=== PATIENT | female | born 1940 | race Asian ===

== ENCOUNTER 2018-12-22 18:01 | Inpatient (IN) | payer OTHER, MEDICAID ==
[~2018-12-22] VITALS: Ht 160 cm; Wt 83.9 kg
--- NOTE | 2018-12-22 18:10 | NUR ---
ED Nurse Note: BROUGHT BY RA 29 DUE TO BULGE ON LEFT MID FEMOR S/P TRIPPED AND FALL, NO HEAD/NECK INJURY. PAIN 1/10 AFTER 100MCG OF FENTANYL
[2018-12-22 18:26] VITALS: BP 157/61
[2018-12-22] MEDS ORDERED: Morphine Sulfate 4mg/ml Inj (IV USE ONLY) IVP ONE (18:30)
--- NOTE | 2018-12-22 18:43 | Emergency Room Report ---
History of Present Illness General Chief Complaint: Multiple Trauma/Fall Source: Patient, EMS Present Illness HPI She was standing and twisted. She heard a pop in her leg and there was pain and she fell. Paramedics were summoned. She has deformity in the mid thigh on the left-hand side. They gave her 100 of fentanyl. Her medics claim the fentanyl is wearing off. Pain is rated 10/10. It is sharp and aching. It does not radiate. She denies numbness. Is worse with palpation and movement. The patient was diverted to our facility by [facility]. The patient denies oncologic problems. No fevers, chills, sore throat, chest pain, palpitations, nausea, vomiting, diarrhea, dysuria, abdominal pain, shortness of breath, rashes, depression, anxiety, visual changes, headache. Allergies: Coded Allergies: No Known Allergies (Unverified , 12/22/18) Patient History Past Medical History: see triage record Past Surgical History: hysterectomy, other - Disc surgery Social History: Denies: smoking, alcohol use, drug use Social History Narrative From home Reviewed Nursing Documentation: PMH: Agreed; PSxH: Agreed Nursing Documentation-PMH Past Medical History: No History, Except For Hx Hypertension: Yes Hx Diabetes: Yes Review of Systems All Other Systems: negative except mentioned in HPI Physical Exam Vital Signs Date Time Temp Pulse Resp B/P (MAP) Pulse Ox O2 Delivery O2 Flow Rate FiO2 12/22/18 17:58 98.2 80 16 157/61 (93) 96 Room Air Sp02 EP Interpretation: reviewed, normal General Appearance: well appearing, GCS 15, mild distress Head: normocephalic Eyes: bilateral eye normal inspection, bilateral eye PERRL, bilateral eye EOMI ENT: moist mucus membranes Neck: supple Respiratory: chest non-tender, lungs clear, normal breath sounds Cardiovascular #1: regular rate, rhythm Cardiovascular #2: 2+ radial (R), 2+ dorsalis pedis (L) - Good capillary refill Gastrointestinal: normal inspection, normal bowel sounds, non tender, non- distended Genitourinary: no CVA tenderness Musculoskeletal: back normal, pelvis stable, other - Deformity and tenderness mid thigh left side no hip tenderness or knee tenderness Neurologic: alert, oriented x3, distal neuro normal, grossly normal Psychiatric: other - In pain Skin: no rash Medical Decision Making Diagnostic Impression: Primary Impression: Femur fracture, left Qualified Codes: S72.322A - Displaced transverse fracture of shaft of left femur, initial encounter for closed fracture ER Course Patient presents with thigh pain after twisting and falling. There is obvious deformity. Differential includes femur fracture, pathologic fracture amongst others. Evaluation will be with preoperative labs including EKG, chest x-ray type and screen. A hair traction splint will be applied. Aggressive analgesia will be administered. EKG without injury. Chest x-ray no infiltrates. Left femur with displaced midshaft fracture. Labs with mild anemia. Analgesia repeated. Slight decrease in oxygen saturation and oxygen begun. Hare traction splint applied with my assistance. Improved anatomic alignment. Distal neurovascular exam normal after splint basement as checked by me. Pain improved. Admit medical floor Dr. Vang. Consultation with Dr. Copeland requested. Laboratory Tests Test 12/22/18 18:35 12/22/18 19:40 White Blood Count 7.4 K/UL (4.8-10.8) Red Blood Count 3.28 M/UL (4.20-5.40) L Hemoglobin 10.4 G/DL (12.0-16.0) L Hematocrit 30.6 % (37.0-47.0) L Mean Corpuscular Volume 93 FL (80-99) Mean Corpuscular Hemoglobin 31.6 PG (27.0-31.0) H Mean Corpuscular Hemoglobin Concent 33.9 G/DL (32.0-36.0) Red Cell Distribution Width 11.6 % (11.6-14.8) Platelet Count 178 K/UL (150-450) Mean Platelet Volume 6.7 FL (6.5-10.1) Neutrophils (%) (Auto) 63.1 % (45.0-75.0) Lymphocytes (%) (Auto) 24.3 % (20.0-45.0) Monocytes (%) (Auto) 10.0 % (1.0-10.0) Eosinophils (%) (Auto) 1.6 % (0.0-3.0) Basophils (%) (Auto) 1.1 % (0.0-2.0) Prothrombin Time 10.2 SEC (9.30-11.50) Prothrombin Time INR 1.0 (0.9-1.1) PTT 32 SEC (23-33) Sodium Level 145 MMOL/L (136-145) Potassium Level 3.2 MMOL/L (3.5-5.1) L Chloride Level 111 MMOL/L (98-107) H Carbon Dioxide Level 23 MMOL/L (21-32) Anion Gap 11 mmol/L (5-15) Blood Urea Nitrogen 15 mg/dL (7-18) Creatinine 0.8 MG/DL (0.55-1.30) Estimate Glomerular Filtration Rate mL/min (>60) Glucose Level 115 MG/DL (74-106) H Calcium Level 7.9 MG/DL (8.5-10.1) L Total Bilirubin 0.2 MG/DL (0.2-1.0) Aspartate Amino Transferase (AST) 17 U/L (15-37) Alanine Aminotransferase (ALT) 21 U/L (12-78) Alkaline Phosphatase 47 U/L (46-116) Total Protein 6.2 G/DL (6.4-8.2) L Albumin 3.1 G/DL (3.4-5.0) L Globulin 3.1 g/dL Albumin/Globulin Ratio 1.0 (1.0-2.7) Urine Color Pale yellow Urine Appearance Clear Urine pH 6.5 (4.5-8.0) Urine Specific Ma[place] 1.015 (1.005-1.035) Urine Protein Negative (NEGATIVE) Urine Glucose (UA) Negative (NEGATIVE) Urine Ketones Negative (NEGATIVE) Urine Blood Negative (NEGATIVE) Urine Nitrite Negative (NEGATIVE) Urine Bilirubin Negative (NEGATIVE) Urine Urobilinogen Normal MG/DL (0.0-1.0) Urine Leukocyte Esterase 2+ (NEGATIVE) H Urine RBC 2-4 /HPF (0 - 2) H Urine WBC 5-10 /HPF (0 - 2) H Urine Squamous Epithelial Cells Few /LPF (NONE/OCC) Urine Bacteria Few /HPF (NONE) EKG Diagnostic Results Rate: normal Rhythm: NSR ST Segments: no acute changes Rhythm Strip Diag. Results EP Interpretation: yes Rhythm: NSR, no PVC's, no ectopy Chest X-Ray Diagnostic Results Chest X-Ray Diagnostic Results : Chest X-Ray Ordered: Yes # of Views/Limited/Complete: 1 View Indication: Other EP Interpretation: Yes Interpretation: no consolidation, no effusion, no pneumothorax Impression: No acute disease Other X-Ray Diagnostic Results Other X-Ray Diagnostic Results #1: X-Ray ordered: L femur Indication: Pain EP Interpretation: Yes Interpretation: no soft tissue swelling, other - fx angulation and displacement Impression: Other Electronically Signed by: Electronically signed by Silver Robertson MD Other X-Ray Diagnostic Results #2: X-Ray ordered: L femur # of Views/Limited Vs Complete: 2 View Indication: Other EP Interpretation: Yes Interpretation: no dislocation, no soft tissue swelling, other - fx femur, better Impression: Other Electronically Signed by: Electronically signed by Silver Robertson MD Other X-Ray Diagnostic Results #3: X-Ray ordered: Pelvis # of Views/Limited Vs Complete: 1 View Indication: Pain Interpretation: no dislocation, no soft tissue swelling, no fractures Impression: No acute disease Electronically Signed by: Electronically signed by Silver Robertson MD Last Vital Signs Date Time Temp Pulse Resp B/P (MAP) Pulse Ox O2 Delivery O2 Flow Rate FiO2 12/23/18 04:45 96 20 134/87 (103) 96 12/23/18 04:00 98.4 12/23/18 01:41 Nasal Cannula 2.0 Status: improved Disposition: ADMITTED INPATIENT Condition: Serious Silver Robertson MD Dec 22, 2018 18:43
[2018-12-22] MEDS ORDERED: HYDROmorphone 1mg/ml Carpuject IVP ONE (18:45)
[2018-12-22 19:15] LABS: BASOPHILS % (AUTO) 1.1 % (0.0-2.0); EOSINOPHILS % (AUTO) 1.6 % (0.0-3.0); HEMATOCRIT 30.6 % (37.0-47.0); HEMOGLOBIN 10.4 G/DL (12.0-16.0); LYMPHOCYTES % (AUTO) 24.3 % (20.0-45.0); MEAN CORPUSCULAR VOLUME 93 FL (80-99); NEUTROPHILS % (AUTO) 63.1 % (45.0-75.0); PLATELET COUNT 178 K/UL (150-450); RED BLOOD COUNT 3.28 M/UL (4.20-5.40); RED CELL DISTRIBUTION WIDTH 11.6 % (11.6-14.8); WHITE BLOOD COUNT 7.4 K/UL (4.8-10.8)
[2018-12-22 19:19] LABS: ANION GAP 11 mmol/L (5-15); BLOOD UREA NITROGEN 15 mg/dL (7-18); CALCIUM 7.9 MG/DL (8.5-10.1); CARBON DIOXIDE 23 MMOL/L (21-32); CHLORIDE 111 MMOL/L (98-107); CREATININE 0.8 MG/DL (0.55-1.30); POTASSIUM 3.2 MMOL/L (3.5-5.1); SODIUM 145 MMOL/L (136-145)
[2018-12-22 19:30] LABS: ALANINE AMINOTRANSFERASE 21 U/L (12-78); ALBUMIN 3.1 G/DL (3.4-5.0); ALKALINE PHOSPHATASE 47 U/L (46-116); ASPARTATE AMINO TRANSFERASE 17 U/L (15-37); BILIRUBIN,TOTAL 0.2 MG/DL (0.2-1.0)
--- NOTE | 2018-12-22 19:39 | NUR ---
ED Nurse Note: LEFT LEG TRACTION APPLIED PER EMT
--- NOTE | 2018-12-22 19:45 | NUR ---
ED Nurse Note: LATHE SET UP PERSON AT BEDSIDE FOR FEMUR XRAY
[2018-12-22 19:48] VITALS: BP 169/78
[2018-12-22 19:59] LABS: APPEARANCE,URINE CLEAR; BILIRUBIN, URINE NEGATIVE (NEGATIVE); COLOR,URINE PALE YELLOW; GLUCOSE, URINE (UA) NEGATIVE (NEGATIVE); KETONES,URINE NEGATIVE (NEGATIVE); LEUKOCYTE ESTERASE ,URINE 2+ (NEGATIVE); NITRITE,URINE NEGATIVE (NEGATIVE); PH,URINE 6.5 (4.5-8.0); PROTEIN,URINE NEGATIVE (NEGATIVE); UROBILINOGEN,URINE NORMAL MG/DL (0.0-1.0)
[2018-12-22] MEDS ORDERED: Hydromorphone 0.5mg/0.5ml inj IVP ONE ×2 (20:00→21:30)
--- NOTE | 2018-12-22 21:21 | NUR ---
ED Nurse Note: family at bedside
[2018-12-22] MEDS ORDERED: Hydromorphone 0.5mg/0.5ml inj ONE (21:26)
--- NOTE | 2018-12-22 21:40 | NUR ---
Receive a report from ELLY Kent from ED.
--- NOTE | 2018-12-22 21:42 | NUR ---
ED Nurse Note: telephone report given to tracy vallecillo
[2018-12-22] MEDS ORDERED: UNOBMED (21:44)
[2018-12-22] MEDS ORDERED: Enoxaparin 40mg Inj SUBQ SCH (22:00)
--- NOTE | 2018-12-22 22:00 | NUR ---
ED Nurse Note: pt sent up with ximena emt pt is aox4 pt belongings given to family memeber glenys lai. pt vss. no acute distress.
--- NOTE | 2018-12-22 22:10 | NUR ---
NURSE NOTES: Pt is newly admitted from ED via gurney. Pt is awake and alert, orientation x 4, Luxembourgish speaking. Breathing is even and non labored. On traction at left leg. DPP intact in both feet and sensory and motor skill are intact. Keep traction in place. Armstrong catheter is inserted state and patent with yellowish urine. IV heparin lock on left hand without infiltration. Done check of belongings. Cell phone is placed with pt near hand with a movement therapist. Notify Dr. Vang for pt's admission and verify orders. Will continue to monitor.
[2018-12-22 22:30] VITALS: BP 178/92
[2018-12-22] MEDS: HydrALAZINE 25mg tab ORAL PRN (22:49)
--- NOTE | 2018-12-22 23:00 | NUR ---
NURSE NOTES: Contact with Dr. Copeland for pt's surgery schedule and planning on Saturday. Pt made aware of it. BP: 171/86mmHg. No headache noted. Provide PRN BP medication. Will continue to monitor.
[2018-12-22] MEDS: Morphine Sulfate 2mg/ml Inj(IV/IM USE ONLY) IVP PRN (23:39)
[2018-12-23] VITALS (15 sets, daily range): BP systolic 116–176; BP diastolic 45–103
[2018-12-23] MEDS: Morphine Sulfate 2mg/ml Inj(IV/IM USE ONLY) IVP PRN ×6 (02:44→18:44)
--- NOTE | 2018-12-23 03:30 | NUR ---
NURSE NOTES: After prn pain medication, pt is asleep. On left leg traction. Will continue to monitor.
--- NOTE | 2018-12-23 03:35 | NUR ---
Pt is alert but crying for pain. Given prn pain medication. Checking alignment on left leg traction. Checking sensory and motor on left foot and intact. Release traction two belcrows and reapply.
--- NOTE | 2018-12-23 03:45 | NUR ---
NURSE NOTES: Contact Dr. Vang for pt's pain and receive orders of Dilaudid 1mg IVS x1 and [place] 5/325mg 1t po q 6hrs for breakthrough pain. Order noted and carried out. Send a message to [facility] pharmacy to verify. CN update to Mr Teacher pt's conditions. Will continue to monitor.
[2018-12-23] MEDS ORDERED: HYDROmorphone 1mg/ml Carpuject IVP ONE (04:00)
[2018-12-23] MEDS ORDERED: HYDROcodone/Acetamin 5/325 tab ORAL PRN ×2 (04:00→10:00)
--- NOTE | 2018-12-23 04:10 | NUR ---
NURSE NOTES: Done Dilaudid 1mg IVP. Pt is screaming for not getting treatment right away despite explanation of process of care plan. Spoke to [facility] and called Dr. Vang for pt's conditions. MD will come and see pt a few hours later. And left a message to Dr. Copeland for pt's pain and further treatment. Will continue to monitor.
--- NOTE | 2018-12-23 04:40 | NUR ---
NURSE NOTES: Pain level went down to 4/10. Pt states that she feels better. No nausea/vomiting noted. Explain for process of plan and pain management, usual Drs' visiting time to see pt. Receive orders for pain control. Order noted and carried out. Will continue to monitor.
[2018-12-23] MEDS ORDERED: Morphine Sulfate 2mg/ml Inj(IV/IM USE ONLY) IVP PRN ×2 (05:00→20:15)
--- NOTE | 2018-12-23 05:30 | NUR ---
NURSE NOTES: Pt's friend came to see pt and talk to her. Pain is manageable. Pt is awake and alert. Breathing is even and non labored. Will continue to monitor.
--- NOTE | 2018-12-23 05:50 | NUR ---
NURSE NOTES: Receive a call back from Dr. Copeland. Notify pt's condition and pain with traction. Receive order to switch from traction to splint. And pt can get an emergency surgery after 8pm so keep npo after breakfast. Order noted and carried out. Update CN and pt. Will continue to monitor.
--- NOTE | 2018-12-23 06:10 | NUR ---
NURSE NOTES: RN and rv technician came up from ED and switch from Traction to splint. Both DPP, sensory, and motor are intact. Inform pt that if she feels pain/ swelling on left foot, then let staffs know immediately. Pt verbalizes understanding. Splint in placed on left leg. PRN breakthrough medication given. Will continue to monitor.
[2018-12-23] MEDS: NovoLOG Insulin Flexpen SUBQ SCH ×4 (06:48→21:00)
--- NOTE | 2018-12-23 07:45 | NUR ---
HAND-OFF: Report given to ELLY Dubon. Seen by Dr. Vang earlier. Will continue to monitor.
--- NOTE | 2018-12-23 07:50 | NUR ---
NURSE NOTES: Patient lying in bed awake. Complain of pain 6/10 on left leg and pain medication given by retail shift supervisor nurse. Will continue to monitor. Splint on left leg. IV dressing intact and dry. Bed lowest position. Call light within reach. Will continue to monitor.
[2018-12-23] MEDS: Enoxaparin 40mg Inj SUBQ SCH (08:37)
--- NOTE | 2018-12-23 11:06 | NUR ---
*-* INSURANCE *-* ALL CLINICALS HAVE BEEN FAXED TO; [facility] I CALLED AND LM ON THE VMAIL FOR DELFINO DOMINGUEZ: DELFINO P- [phone]...........REVIEW /CLINICAL
--- NOTE | 2018-12-23 11:17 | Cardiology Report ---
APPROVED REPORT EKG Measurement Heart [id number] Normal sinus rhythm Normal ECG
--- NOTE | 2018-12-23 13:06 | Diagnostic Imaging Report ---
Indications: Trauma, pain Technique: Two views of the left femur Comparison: None Findings: There is a fracture of the proximal femoral diaphysis. This is angulated, displaced by over one bone width, overrides by 3 to 4 cm. Impression: Positive for proximal femoral fracture
--- NOTE | 2018-12-23 13:16 | Diagnostic Imaging Report ---
Indication: Chest pain, status post fall Technique: One view of the chest Comparison: none Findings: Body habitus limits evaluation. No definite acute infiltrates or effusions. The heart is borderline enlarged. There is mild bilateral interstitial prominence. The bones appear unremarkable Impression: No evidence of acute posttraumatic abnormality Borderline interstitial prominence, could indicate mild interstitial edema. Correlate with clinical findings
--- NOTE | 2018-12-23 13:34 | Diagnostic Imaging Report ---
Indications: Postreduction Technique: Two views of the left femur Comparison: None Findings: External splint or fixator is noted. There is been interim improvement of the anatomic alignment of the previously demonstrated proximal femoral shaft fracture. There is decreased angulation and override. However, there is still approximately 2 to 3 cm of override and the fracture remains displaced by one bone width. Impression: Somewhat improved alignment of previously demonstrated proximal femoral fracture, status post apparent closed reduction, as described
--- NOTE | 2018-12-23 13:41 | Diagnostic Imaging Report ---
Indication: Trauma, pain, status post fall Technique: One view of the pelvis Comparison: Findings: There is an external splint in place. There is a fracture of the proximal femoral shaft, which is displaced by about one bone with, overrides by a few centimeters. No pelvic fracture demonstrated. Hardware is seen in the posterior lower lumbar spine. There is a Armstrong catheter in place. The joint spaces are preserved Impression: Positive for femoral shaft fracture, also described on separate femoral radiograph report. No definite acute pelvic fracture Other findings as noted
--- NOTE | 2018-12-23 16:24 | NUR ---
CASE MANAGEMENT:REVIEW 78 YR OLD FEMALE BIBA FROM HOME CC; S/P TRIP AND FALL. LT LEG PAIN SI: FRACTURED FEMUR 98.3 80 16 157/61 96% ON RA H/H-10.4/30.6 K-3.2 GLUCOSE+115 IS: LT LEG TRACTION APPLIED BY EMS IV MORPHINE IV DILAUDID X2 1L NS BOLUS IV ZOFRAN XRAY LT FEMUR/PELVIS/CHEST : TO MED/SURG 3 EAST PLAN: CONSENT FOR LT FEMUR ORIF
--- NOTE | 2018-12-23 16:56 | History and Physical Report ---
DATE OF ADMISSION: 12/22/2018 REASON FOR ADMISSION: Left femur fracture. HISTORY OF PRESENT ILLNESS: The patient is a 78-year-old female, who was admitted overnight for further evaluation and care of pain of her left leg. The patient was standing and seemingly twisted herself, heard a pop in her leg, and fell. Instantly felt pain 10/10, was given fentanyl by EMS. The patient was diverted to facility from [facility]. Orthopedics noted left femur fracture, awaiting surgery. ALLERGIES: No known drug allergies SOCIAL HISTORY: No tobacco, alcohol, or illicit drug use. PAST SURGICAL HISTORY: Hysterectomy and disk surgery. PAST MEDICAL HISTORY: Hypertension, hyperlipidemia, diabetes. LABORATORY DATA: Labs dated 12/22/2018 sodium 142, potassium 3.2, calcium 7.9. Hemoglobin 10.4, white cell count 7.4, platelet count 178. PHYSICAL EXAMINATION: VITAL SIGNS: Blood pressure 134/87, respiratory rate 20, pulse 96, temperature 98.4. GENERAL: The patient awake, in moderate distress with movement. HEENT: Extraocular muscles intact. No lymphadenopathy. Oropharyngeal is clear and dry. CARDIOVASCULAR: S1, S2. No rubs or gallops. PULMONARY: Clear to auscultation bilaterally. No rales, rhonchi, or wheezes. ABDOMINAL: Nondistended and nontender. EXTREMITIES: No edema noted. ASSESSMENT AND PLAN: 1. Left leg pain, status post left femur fracture. Defer all management of fracture to Orthopedics. Orthopedic Surgery is planning ORIF on Saturday. 2. Left leg pain secondary to left femur fracture. The patient has had her pain medications increased accordingly with [place] and morphine. When I approached and went into the room, the patient was lying quiet in no overt distress. She was not in any pain. However, once I started to talk to her, she tried to move her leg and was found in pain. 3. Hypertension. We will adjust medications as deemed appropriate. No home medications are known. 4. Diabetes mellitus. Insulin with sliding scale. Once again, I discussed with nurse extensively to try to get home medications. 5. DVT prophylaxis with Lovenox. Juan Vang MD DR: LUZ MARINA JOB#: [id number] CC:
[2018-12-23] MEDS ORDERED: Zemuron 50mg/5ml Inj IV ONE (19:26)
[2018-12-23] MEDS ORDERED: Bacitracin 50000 Units Vial ONE (19:26)
[2018-12-23] MEDS ORDERED: Propofol 200mg/20ml IV ONE (19:28)
[2018-12-23] MEDS ORDERED: fentaNYL 100 mcg/2 mL IV ONE (19:28)
[2018-12-23] MEDS ORDERED: Lidocaine 1% MPF 10mg/ml 5ml ONE (19:28)
--- NOTE | 2018-12-23 19:30 | NUR ---
NURSE NOTES: Received report from ELLY Dubon and rounds made with outgoing nurse. Received pt in bed, AOx4, Welsh speaking with limited hong konger, able to make needs known without difficulty. No distress noted. Bed in lowest position and locked, side rails up x 2, call light within reach. Will continue to monitor.
--- NOTE | 2018-12-23 19:30 | NUR ---
HAND-OFF: Report given to Lui RN and Maria Ines RN. Patient in stable condition.
--- NOTE | 2018-12-23 19:47 | NUR ---
NURSE NOTES: Patient off unit for surgery in stable condition. IV patent.
--- NOTE | 2018-12-23 19:48 | NUR ---
NURSE NOTES: Pt taken down to O.R. for surgery. Pt in stable condition. No distress noted.
--- NOTE | 2018-12-23 19:51 | Anethesia Preoperative Eval ---
Anesthesia Pre-op PMH/ROS General Date of Evaluation: Dec 23, 2018 Time of Evaluation: 19:20 Anesthesiologist: Arline ASA Score: ASA 3 Mallampati Score Class I : Soft palate, uvula, fauces, pillars visible Class II: Soft palate, uvula, fauces visible Class III: Soft palate, base of uvula visible Class IV: Only hard plate visible Mallampati Classification: Class II Surgeon: Min Diagnosis: L femoral Fx Surgical Procedure: ORIF of L femoral Fx Anesthesia History: none Family History: no anesthesia problems Allergies: Coded Allergies: No Known Allergies (Unverified , 12/22/18) Medications: see eMAR Patient NPO?: Yes NPO Date: Dec 23, 2018 NPO Time: 1000 Past Medical History Cardiovascular: Reports: HTN - stable on meds; Denies: CAD, AR, valve dz, arrhythmia, other Pulmonary: Denies: asthma, COPD, CELIO, other Gastrointestinal/Genitourinary: Reports: GERD; Denies: CRI, ESRD, other Neurologic/Psychiatric: Reports: depression/anxiety; Denies: dementia, CVA, TIA, other Endocrine: Reports: DM; Denies: hypothyroidism, steroids, other HEENT: Denies: cataract (L), cataract (R), glaucoma, [place] (L), [place] (R), other Hematology/Immune: Reports: anemia - mild; Denies: DVT, bleeding disorder, other Musculoskeletal/Integumentary: Reports: OA; Denies: RA, DJD, DDD, edema, other Other: obesity PMH Narrative: as above admitted for acute mechanical fall resulted in L femoral shaft Fx PSxH Narrative: Lumbar spine Sx, hysterectomy Anesthesia Pre-op Phys. Exam Physician Exam Last Vital Signs Date Time Temp Pulse Resp B/P (MAP) Pulse Ox O2 Delivery O2 Flow Rate FiO2 12/23/18 16:00 98.0 94 17 167/103 (124) 95 12/23/18 09:00 Nasal Cannula 2.0 12/23/18 08:10 28 Constitutional: NAD Neurologic: other - unable to obtaine Cardiovascular: RRR, no M/R/G Respiratory: CTA Gastrointestinal: other - obesity Airway Exam Mallampati Score: Class III MO: limited Neck: short ROM: limited Teeth: missing Dentures: no upper, no lower Anesthesia Pre-op A/P Labs see chart Studies Pre-op Studies: EKG - SR Risk Assessment & Plan Assessment: ASA 3 Plan: GA with ETT Status Change Before Surgery: No Pre-Antibiotics Drug: Ancef 1gr Given Within 1 Hr of Incision: Yes Time Given: 20:12 Nghia Nunn MD Dec 23, 2018 19:51
[2018-12-23] MEDS ORDERED: Glycopyrrolate 0.2mg/ml 1ml Vial ONE (20:00)
[2018-12-23] MEDS ORDERED: DiphenhydrAMINE 50mg/ml Inj IVP PRN (20:00)
[2018-12-23] MEDS ORDERED: Ketorolac 30mg Inj IV PRN (20:00)
[2018-12-23] MEDS ORDERED: Acetaminophen (Non formulary) 100 ML IV ONE (20:00)
[2018-12-23] MEDS ORDERED: Sterile Water Irrig 1000ml IRRIG ONE (20:00)
[2018-12-23] MEDS ORDERED: Neostigmine 1mg/ml 10ml Inj ONE (20:00)
[2018-12-23] MEDS ORDERED: D5 1/2NS w/KCl 20mEq 1,000 ML IV SCH (20:04)
--- NOTE | 2018-12-23 20:04 | Operative Note - PDOC ---
Operative Note Operative Note Pre-op Diagnosis: left femur fracture Procedure: orif left femur Post-op Diagnosis: same as pre-op plus Operative Findings: consistent w/pre-op dx studies Anesthesia: regional Specimen: none Complications: none Condition: stable Estimated Blood Loss: none Implant(s) used?: Yes Bruce Copeland MD Dec 23, 2018 20:04
--- NOTE | 2018-12-23 20:04 | Pre-Procedure Note/Attestation ---
Pre-Procedure Note/Attestation Complete Prior to Procedure Planned Procedure: left Procedure Narrative: hip orif Indications for Procedure Pre-Operative Diagnosis: left femur fracture Attestation I attest that I discussed the nature of the procedure; its benefits; risks and complications; and alternatives (and the risks and benefits of such alternatives ), prior to the procedure, with the patient (or the patient's legal software support representative). I attest that, if there was a reasonable possibility of needing a blood transfusion, the patient (or the patient's legal software support representative) was given the [facility] standardized written summary, pursuant to the Luis A Shay Blood Safety Act ([place] Health and Safety Code # 1645, as amended). I attest that I re-evaluated the patient just prior to the surgery and that there has been no change in the patient's H&P, except as documented below: Bruce Copeland MD Dec 23, 2018 20:04
[2018-12-23] MEDS ORDERED: HYDROcodone/Acetamin 7.5/325 tab ORAL PRN (20:15)
[2018-12-23] MEDS ORDERED: Milk of Magnesia 30ml Ud ORAL PRN (20:15)
[2018-12-23] MEDS ORDERED: Fleet's Enema 133ml RECTAL PRN (20:15)
[2018-12-23] MEDS ORDERED: oxyCODONE 5mg IR tab ORAL PRN (20:15)
[2018-12-23] MEDS ORDERED: Hydrogen Peroxide 473ml Bottle TOPIC ONE ×2 (20:39→20:56)
[2018-12-23] MEDS ORDERED: Duramorph PF 5mg/10ml amp ONE (20:50)
[2018-12-23] MEDS ORDERED: NS Irrig 1000ml IRRIG ONE (20:54)
--- NOTE | 2018-12-23 21:46 | Immediate Post-Op Evaluation ---
Immediate Post-Op Evalulation Immediate Post-Op Evalulation Procedure: ORIF L femoral Fx. Date of Evaluation: Dec 23, 2018 Time of Evaluation: 21:45 IV Fluids: 1000 Blood Products: none Estimated Blood Loss: 150 Urinary Output: 150 Blood Pressure Systolic: 116 Blood Pressure Diastolic: 58 Pulse Rate: 86 Respiratory Rate: 22 O2 Sat by Pulse Oximetry: 99 Temperature (Fahrenheit): 97.7 Pain Score (1-10): 2 Nausea: No Vomiting: No Complications none Patient Status: reacts, patent, extubated, none Hydration Status: adequate Nghia Nunn MD Dec 23, 2018 21:46
[2018-12-23] MEDS: Hydromorphone 0.5mg/0.5ml inj IVP PRN ×2 (21:51→22:09)
[2018-12-23] MEDS ORDERED: ceFAZolin sod 2 GM in D5W 110 ML IV SCH (22:00)
--- NOTE | 2018-12-23 22:30 | NUR ---
NURSE NOTES: Received report from ELLY Munroe from PACU. Received pt via bed from PACU, AOx4, denies any pain. On oxygen 2 liters via nasal canula, no distress noted. Pt able to wiggle to toes slowly. Surgical dressing C/DI. Bed in lowest position and locked, side rails up x 2, call light within reach, bed alarm on zone 2. Will continue to monitor.
--- NOTE | 2018-12-23 22:30 | Operative Note - Dictated ---
DATE OF OPERATION: 12/23/2018 PREOPERATIVE DIAGNOSIS: Left midshaft femur fracture. POSTOPERATIVE DIAGNOSIS: Left midshaft femur fracture. PROCEDURE: Open reduction and internal fixation, left midshaft femur fracture with intramedullary device. SURGEON: Bruce Copeland M.D. ANESTHESIA: Spinal. INDICATION: The patient is a 78-year-old female, who sustained atypical fracture in the midshaft secondary to indicative of operative fixation open reduction and internal fixation. Risks, limitations, expectations, and complications of the procedure were discussed in detail. All questions addressed. DESCRIPTION OF PROCEDURE: Informed consent was obtained. The patient was brought to the operating room. The patient was placed under spinal anesthesia. The patient was then carefully placed on the fracture table. Reduction of the fracture was performed using fluoroscopy. Left hip was prepped and draped in a sterile manner. Time-out was performed. Standard lateral skin incision was then made. Guidewire was placed in the proximal femur. Proximal femur was opened up with opening reamer. A beaded tip guidewire was then placed through the fracture site. Sequential reaming up to 12 was performed. Proximal aspect was opened up with a 15.5 millimeter reamer. A 360 x 10 mm gamma nail was selected. It was difficult to pass the anterior bow. Therefore, sequential reaming up to 13 was performed. At this point, the nail was able to be passed through the fracture site. An 85 millimeter cannulated screw was then placed in the neck head junction. Two distal locking screws were placed. The target device was removed. Wound was copiously irrigated. Skin was closed using #1 Vicryl suture, 2-0 Vicryl suture, and 3-0 Monocryl suture. Steri-Strips and a sterile dressing was applied. The patient was awoken and taken to recovery room with stable vital signs. ESTIMATED BLOOD LOSS: 25 mL. COMPLICATIONS: None. SPECIMENS: None. IMPLANTS: Include long gamma nail, 85 millimeters cannulated screw, and 2 distal locking screws. Bruce Copeland M.D. DR: DONAVAN JOB#: [id number] CC:
[2018-12-23] MEDS ORDERED: 1/2NS w/KCl 20mEq 1000ml 1,000 ML IV SCH (22:45)
--- NOTE | 2018-12-23 23:15 | Consultation ---
DATE OF CONSULTATION: 12/23/2018 ORTHOPEDIC CONSULTATION CONSULTING PHYSICIAN: Bruce Copeland M.D. CHIEF COMPLAINT: Left hip pain. HISTORY OF PRESENT ILLNESS: The patient is a 78-year-old female with a history of bisphosphonate use. She subsequently had a fall. She was diagnosed with left transverse midshaft femur fracture. Orthopedic consultation was obtained for further care and recommendation. PAST MEDICAL HISTORY: Reviewed per intake chart. PAST SURGICAL HISTORY: Reviewed per intake chart. MEDICATIONS: Reviewed per intake chart. PHYSICAL EXAMINATION: GENERAL: The patient is alert and oriented. She is resting in bed. She is in moderate discomfort. VITAL SIGNS: Afebrile. Stable vital signs. EXTREMITIES: Left thigh shows obvious deformity. Dorsalis pedis +2. IMAGING STUDIES: Show a transverse midshaft femur fracture. ASSESSMENT: Left transverse midshaft femur fracture. DISCUSSION: At this point, she has an atypical fracture due to bisphosphonate treatment. She is indicative of operative fixation. Risks, limitations, expectations, and complication related to the procedure were discussed in detail. All questions were addressed. We will make her NPO after midnight in anticipation of surgery tomorrow. Risks, limitations, and expectations were discussed with the patient. Bruce Copeland M.D. DR: TEJINDER JOB#: [id number] CC:
[2018-12-24] VITALS: BP 120/46
[2018-12-24] MEDS: HYDROcodone/Acetamin 5/325 tab ORAL PRN ×2 (02:40→08:48)
[2018-12-24] MEDS: ceFAZolin sod 2 GM in D5W 110 ML IV SCH ×3 (03:46→20:09)
[2018-12-24 04:00] VITALS: BP 124/81
[2018-12-24] MEDS: Morphine Sulfate 2mg/ml Inj(IV/IM USE ONLY) IVP PRN ×3 (05:21→23:16)
[2018-12-24] MEDS: NovoLOG Insulin Flexpen SUBQ SCH ×4 (05:56→20:19)
[2018-12-24 06:27] LABS: BASOPHILS % (AUTO) 0.4 % (0.0-2.0); EOSINOPHILS % (AUTO) 0.3 % (0.0-3.0); HEMATOCRIT 27.7 % (37.0-47.0); HEMOGLOBIN 9.3 G/DL (12.0-16.0); LYMPHOCYTES % (AUTO) 9.4 % (20.0-45.0); MEAN CORPUSCULAR VOLUME 95 FL (80-99); MONOCYTES % (AUTO) 7.8 % (1.0-10.0); NEUTROPHILS % (AUTO) 82.1 % (45.0-75.0); PLATELET COUNT 162 K/UL (150-450); RED BLOOD COUNT 2.93 M/UL (4.20-5.40); RED CELL DISTRIBUTION WIDTH 11.9 % (11.6-14.8); WHITE BLOOD COUNT 11.4 K/UL (4.8-10.8)
[2018-12-24 06:32] LABS: ANION GAP 7 mmol/L (5-15); BLOOD UREA NITROGEN 12 mg/dL (7-18); CALCIUM 8.1 MG/DL (8.5-10.1); CARBON DIOXIDE 26 MMOL/L (21-32); CHLORIDE 106 MMOL/L (98-107); CREATININE 0.8 MG/DL (0.55-1.30); POTASSIUM 4.1 MMOL/L (3.5-5.1); SODIUM 139 MMOL/L (136-145)
--- NOTE | 2018-12-24 07:19 | NUR ---
HAND-OFF: Report given to ELLY Avalos. Pt in stable condition.
--- NOTE | 2018-12-24 07:23 | 48 Hour Post Anesthesia Eval ---
Post Anesthesia Evaluation Procedure: ORIF L femoral Fx. Date of Evaluation: Dec 24, 2018 Airway: patent Nausea: No Vomiting: No Hydration Status: adequate Cardiopulmonary Status: at baseline Mental Status/LOC: patient returned to baseline Post-Anesthesia Complications: 0 Follow-up care needed: N/A - further care as per primary team Gricelda Brown MD Dec 24, 2018 07:23
--- NOTE | 2018-12-24 07:55 | NUR ---
NURSE NOTES: Received report from ELLY Poe. Pt in bed, awake, talkative, no complaints of pain at this time, dressing intact, mild saturation, Armstrong in place and draining, IV fluids running according to order, discussed plan of care, bed in lowest position, call light within reach.
[2018-12-24 08:00] VITALS: BP 130/56
[2018-12-24] MEDS: Docusate 100mg cap ORAL SCH ×3 (08:47→17:46)
[2018-12-24] MEDS: Metamucil Pkt ORAL SCH ×3 (08:47→17:46)
[2018-12-24] MEDS: Enoxaparin 40mg Inj SUBQ SCH (08:49)
[2018-12-24] MEDS: celeBREX 200mg Cap **SURGERY PATIENTS ONLY ORAL SCH (08:49)
--- NOTE | 2018-12-24 09:37 | Nephrology Progress Note ---
Assessment/Plan Assessment/Plan: A/P 1) Left Hip Pain- Left transverse midshaft femur fracture. - s/p ORIF 2) HTN- stable 3) DM - insulin and SS DC to rehab Subjective Date patient seen: Dec 24, 2018 Time patient seen: 09:30 Allergies: Coded Allergies: No Known Allergies (Unverified , 12/22/18) Subjective Patient had ORIF yesterday Objective Last 24 Hour Vital Signs Date Time Temp Pulse Resp B/P (MAP) Pulse Ox O2 Delivery O2 Flow Rate FiO2 12/24/18 08:00 99.6 90 16 130/56 (80) 96 12/24/18 04:00 98.1 83 16 124/81 (95) 95 12/24/18 00:00 98.9 82 19 120/46 (70) 97 12/23/18 22:40 98.9 82 19 120/76 (91) 97 12/23/18 22:30 Nasal Cannula 2.0 12/23/18 22:30 98.0 77 17 124/56 95 Nasal Cannula 3 12/23/18 22:21 97.8 12/23/18 22:16 80 18 143/45 99 Nasal Cannula 3 12/23/18 22:05 80 13 140/49 97 Nasal Cannula 3 12/23/18 22:00 84 15 139/50 100 Nasal Cannula 3 12/23/18 21:50 82 19 148/53 100 Simple Mask 6 12/23/18 21:46 86 22 99 12/23/18 21:45 85 13 121/73 100 Simple Mask 6 12/23/18 21:40 97.9 92 22 116/46 100 Simple Mask 6 12/23/18 19:00 97 Nasal Cannula 2.0 28 12/23/18 16:00 98.0 94 17 167/103 (124) 95 12/23/18 12:00 99.5 78 18 135/74 (94) 98 Intake and Output 12/23/18 12/24/18 19:00 07:00 Intake Total 400 ml 2015 ml Output Total 2100 ml 700 ml Balance -1700 ml 1315 ml Intake Oral 400 ml 120 ml IV Total 1895 ml Output Urine Total 2100 ml 550 ml Estimated Blood Loss 150 ml Laboratory Tests 12/24/18 04:45: White Blood Count 11.4#H, Red Blood Count 2.93L, Hemoglobin 9.3L, Hematocrit 27.7L, Mean Corpuscular Volume 95, Mean Corpuscular Hemoglobin 31.7H, Mean Corpuscular Hemoglobin Concent 33.5, Red Cell Distribution Width 11.9, Platelet Count 162, Mean Platelet Volume 6.1L, Neutrophils (%) (Auto) 82.1H, Lymphocytes (%) (Auto) 9.4L, Monocytes (%) (Auto) 7.8, Eosinophils (%) (Auto) 0.3, Basophils (%) (Auto) 0.4, Sodium Level 139, Potassium Level 4.1, Chloride Level 106, Carbon Dioxide Level 26, Anion Gap 7, Blood Urea Nitrogen 12, Creatinine 0.8, Estimat Glomerular Filtration Rate , Glucose Level 122H, Calcium Level 8.1L Height (Feet): 5 Height (Inches): 3.00 Weight (Pounds): 185 General Appearance: no apparent distress, alert EENT: normal ENT inspection Neck: normal alignment, supple Cardiovascular: normal rate, regular rhythm Respiratory/Chest: lungs clear, normal breath sounds Abdomen: non tender, soft Edema: no edema noted Arm (L), no edema noted Arm (R), no edema noted Leg (L), no edema noted Leg (R), no edema noted Pedal (L), no edema noted Pedal (R), no edema noted Generalized Juan Vang MD Dec 24, 2018 09:37
--- NOTE | 2018-12-24 10:35 | NUR ---
*-* INSURANCE *-* UPDATED CLINICALS AND REVIEWS HAVE BEEN FAXED TO; [facility] I CALLED AND LM ON THE VMAIL FOR DELFINO DOMINGUEZ: DELFINO P- [phone]...........REVIEW /CLINICAL
--- NOTE | 2018-12-24 10:40 | NUR ---
NURSE NOTES: Armstrong catheter removed per MD order. Patient tolerated well. Patient educated to inform RN when ready to void.
[2018-12-24 12:00] VITALS: BP 110/54
--- NOTE | 2018-12-24 13:38 | NUR ---
NURSE NOTES: Patient voided clear, yellow urine on bedside commode without difficulty.
--- NOTE | 2018-12-24 13:40 | NUR ---
CASE MANAGEMENT:REVIEW 12/24/18 SI: POD #1 S/P ORIF LT FEMUR 99.6 90 16 130/56 96% ON 2L/NC WBC+11.4 H/H-9.3/27.7 IS: IV ANCEF Q8HRS PROTONIX PO QAM IV MORPHINE Q3HRS PRN LOVENOX SQ QD : MED/SURG STATUS 3 [facility]: WILL NEED REHAB....PHYSICAL THERAPY EVAL PENDING
--- NOTE | 2018-12-24 13:43 | NUR ---
DISCHARGE PLANNING BACK HAND NOTE NOTED WAITING FOR PHYSICAL THERAPY NOTES ONCE NOTES AVAILABLE WILL FAX TO [facility] AND THEY WILL EITHER SEEK REHAB PLACEMENT OR RECOMMEND HOME HEALTH
--- NOTE | 2018-12-24 13:58 | NUR ---
P.T Note:late entry 0945 P.T. evaluation completed and treatment initiated. Please refer to P.T evaluation for current functional status. Pt is alert. O x 4 , pleasant and cooperative despite c/o L hip pain aggravated by mobility and WB 3-8/10 pain scale. Pt currently requires MOD A X and extended time for bed mobility, transfers and gait/ambulation activities using the FWW. Skilled P.T service is warranted to improve her strength, balance and endurance to increase her mobility independence and safety and to prepare her to the next level of care. Recommend SNF for short term rehab for intensive therapy VS home with P.T follow up at [facility]. Thank you for this referral.
[2018-12-24] MEDS ORDERED: 1/2 NS 1000ml IV ONE (14:26)
--- NOTE | 2018-12-24 15:28 | Diagnostic Imaging Report ---
Indication: Intraoperative imaging COMPARISON: None FINDINGS: 4 fluoroscopic images were obtained intraoperatively. Long intramedullary miya and dynamic hip screw noted reducing a fracture of the left hip. Distal locking screw demonstrated. IMPRESSION: Intraoperative imaging as described above
[2018-12-24 16:00] VITALS: BP 116/59
--- NOTE | 2018-12-24 19:00 | NUR ---
HAND-OFF: Report given to Lui SANABRIA. Patient is in stable condition.
--- NOTE | 2018-12-24 19:30 | NUR ---
NURSE NOTES: Received report from ELLY Avalos and rounds made with outgoing nurse. Received pt lying in bed AOx4, pain level 8/10, will medicate for pain as needed, no distress noted. Surgical dressing left hip stained C/D/I. Bed in lowest position, locked, bed alarm on, side rails up x 2, call light within reach. Will continue to monitor.
[2018-12-24 20:00] VITALS: BP 144/74
[2018-12-25] VITALS (7 sets, daily range): BP systolic 121–140; BP diastolic 66–80
[2018-12-25] MEDS: Morphine Sulfate 2mg/ml Inj(IV/IM USE ONLY) IVP PRN (03:43)
[2018-12-25] MEDS: ceFAZolin sod 2 GM in D5W 110 ML IV SCH ×3 (03:43→20:24)
[2018-12-25] MEDS: NovoLOG Insulin Flexpen SUBQ SCH ×4 (06:15→20:43)
--- NOTE | 2018-12-25 07:29 | NUR ---
HAND-OFF: Report given to ELLY Guerrero. Pt in stable condition.
--- NOTE | 2018-12-25 07:35 | NUR ---
NURSE NOTES: Received report from ELLY Poe. Rounding done with outgoing nurse. Pt a/o x4, in bed, Yi speaking. No respiratory distress noted. Denies pain at this time. Lt knee surgical site dressing is little stained. Walker/BSC is at bedside. Bed in lowest position, call light within reach. Will continue to monitor.
--- NOTE | 2018-12-25 07:47 | Nephrology Progress Note ---
Assessment/Plan Assessment/Plan: A/P 1) Left Hip Pain- Left transverse midshaft femur fracture. - s/p ORIF - awaiting placement 2) HTN- stable 3) DM - insulin and SS DC to rehab or SNF or HH with PT Subjective Date patient seen: Dec 25, 2018 Time patient seen: 07:46 ROS Limited/Unobtainable: No Allergies: Coded Allergies: No Known Allergies (Unverified , 12/22/18) Subjective Patient had ORIF. Waiting placement Objective Last 24 Hour Vital Signs Date Time Temp Pulse Resp B/P (MAP) Pulse Ox O2 Delivery O2 Flow Rate FiO2 12/25/18 04:00 98.9 99 18 123/80 (94) 96 12/25/18 00:00 99.5 103 18 138/66 (90) 96 12/24/18 21:00 Room Air 12/24/18 20:44 99.4 12/24/18 20:44 99.4 12/24/18 20:37 99.4 12/24/18 20:00 100.4 106 20 144/74 (97) 95 12/24/18 20:00 95 Room Air 21 12/24/18 16:00 98.3 54 19 116/59 (78) 98 12/24/18 12:00 97.2 84 19 110/54 (72) 97 12/24/18 09:00 Nasal Cannula 2.0 12/24/18 08:00 99.6 90 16 130/56 (80) 96 Intake and Output 12/24/18 12/25/18 18:59 06:59 Intake Total 860 ml 420 ml Output Total 500 ml 500 ml Balance 360 ml -80 ml Intake Oral 450 ml 200 ml IV Total 410 ml 220 ml Output Urine Total 500 ml 500 ml # Voids 2 Height (Feet): 5 Height (Inches): 3.00 Weight (Pounds): 185 General Appearance: no apparent distress EENT: normal ENT inspection Neck: normal alignment, supple Cardiovascular: normal rate, regular rhythm Respiratory/Chest: lungs clear, normal breath sounds Abdomen: non tender, soft Edema: no edema noted Arm (L), no edema noted Arm (R), no edema noted Leg (L), no edema noted Leg (R), no edema noted Pedal (L), no edema noted Pedal (R), no edema noted Generalized Juan Vang MD Dec 25, 2018 07:47
--- NOTE | 2018-12-25 08:03 | NUR ---
CASE MANAGEMENT:REVIEW 12/25/18 SI: POD #2 S/P ORIF LT FEMUR T 99.5 HR 106 RR 20 B/P 144/74 SATS 95% ON RA NO LABS TODAY IS: IV ANCEF Q8HRS PROTONIX PO QAM IV MORPHINE Q3HRS PRN LOVENOX SUBQ QD : MED/SURG STATUS 3 [facility]: WILL NEED REHAB....PHYSICAL THERAPY EVAL PENDING
[2018-12-25 08:23] LABS: BASOPHILS % (AUTO) 1.4 % (0.0-2.0); EOSINOPHILS % (AUTO) 0.8 % (0.0-3.0); HEMATOCRIT 27.4 % (37.0-47.0); HEMOGLOBIN 9.2 G/DL (12.0-16.0); LYMPHOCYTES % (AUTO) 11.4 % (20.0-45.0); MEAN CORPUSCULAR VOLUME 92 FL (80-99); MONOCYTES % (AUTO) 8.7 % (1.0-10.0); NEUTROPHILS % (AUTO) 77.7 % (45.0-75.0); PLATELET COUNT 161 K/UL (150-450); RED BLOOD COUNT 2.98 M/UL (4.20-5.40); RED CELL DISTRIBUTION WIDTH 12.8 % (11.6-14.8); WHITE BLOOD COUNT 9.3 K/UL (4.8-10.8)
[2018-12-25 08:24] LABS: ANION GAP 10 mmol/L (5-15); BLOOD UREA NITROGEN 11 mg/dL (7-18); CALCIUM 8.5 MG/DL (8.5-10.1); CARBON DIOXIDE 24 MMOL/L (21-32); CHLORIDE 105 MMOL/L (98-107); CREATININE 0.7 MG/DL (0.55-1.30); POTASSIUM 3.8 MMOL/L (3.5-5.1); SODIUM 139 MMOL/L (136-145)
[2018-12-25] MEDS: celeBREX 200mg Cap **SURGERY PATIENTS ONLY ORAL SCH (08:32)
[2018-12-25] MEDS: Docusate 100mg cap ORAL SCH ×3 (08:33→18:00)
[2018-12-25] MEDS: Enoxaparin 40mg Inj SUBQ SCH (08:34)
--- NOTE | 2018-12-25 09:33 | NUR ---
*-* INSURANCE *-* UPDATED CLINICALS AND REVIEWS HAVE BEEN FAXED TO; [facility] I CALLED AND LM ON THE VMAIL FOR DELFINO DOMINGUEZ: DELFINO P- [phone] [phone]...........REVIEW /CLINICAL
[2018-12-25] MEDS: Metamucil Pkt ORAL SCH ×3 (10:54→18:00)
--- NOTE | 2018-12-25 13:17 | NUR ---
DISCHARGE PLANNING FAXED PHYSICAL THERAPY NOTES TO [facility] DELFINO P- [phone]
--- NOTE | 2018-12-25 19:25 | NUR ---
HAND-OFF: Report given to ELLY Miller. Patient is stable.
--- NOTE | 2018-12-25 19:45 | NUR ---
NURSE NOTES: Received patient in bed, asleep, no acute distress noted, VSS, afebrile, patient can ambulate with assistance and a walker, IV site is clean dry and intact. Call light is within reach, bed is locked lowered and alarm is on. Will continue to monitor for safety and comfort.
[2018-12-26] MEDS: ceFAZolin sod 2 GM in D5W 110 ML IV SCH ×2 (04:15→12:38)
[2018-12-26 04:23] VITALS: BP 145/87
[2018-12-26] MEDS: NovoLOG Insulin Flexpen SUBQ SCH ×2 (06:21→11:30)
--- NOTE | 2018-12-26 06:59 | NUR ---
HAND-OFF: Report given to ELLY Guerrero.
--- NOTE | 2018-12-26 07:23 | NUR ---
NURSE NOTES: Received report from ELLY Miller. Pt a/o x 4, in bed. Pt state she slept well last night. Lt femur surgical site dressing is stained. Bed in lowest position, call light within reach. Will continue to monitor.
--- NOTE | 2018-12-26 07:52 | Nephrology Progress Note ---
Assessment/Plan Assessment/Plan: A/P 1) Left Hip Pain- Left transverse midshaft femur fracture. - s/p ORIF - DC today 2) HTN- stable 3) DM - insulin and SS DC to rehab or SNF or HH with PT today Subjective Date patient seen: Dec 26, 2018 Time patient seen: 07:50 ROS Limited/Unobtainable: No Allergies: Coded Allergies: No Known Allergies (Unverified , 12/22/18) Subjective Patient had ORIF. DC today once cleared by insurance company Objective Last 24 Hour Vital Signs Date Time Temp Pulse Resp B/P (MAP) Pulse Ox O2 Delivery O2 Flow Rate FiO2 12/26/18 04:23 97.9 79 19 145/87 (106) 12/25/18 23:45 97.8 78 19 129/78 (95) 12/25/18 21:02 Room Air 12/25/18 20:00 98.9 78 19 130/68 (88) 12/25/18 16:00 98.9 100 18 131/66 (87) 96 12/25/18 12:00 99.4 99 18 140/73 (95) 97 12/25/18 09:00 Room Air 12/25/18 08:00 98.9 99 18 121/68 (85) 96 Intake and Output 12/25/18 12/26/18 18:59 06:59 Intake Total 750 ml Output Total 800 ml Balance 750 ml -800 ml Intake Oral 640 ml IV Total 110 ml Output Urine Total 800 ml # Voids 2 # Bowel Movements 1 Laboratory Tests 12/25/18 07:56: White Blood Count 9.3, Red Blood Count 2.98L, Hemoglobin 9.2L, Hematocrit 27.4L , Mean Corpuscular Volume 92, Mean Corpuscular Hemoglobin 30.9, Mean Corpuscular Hemoglobin Concent 33.6, Red Cell Distribution Width 12.8, Platelet Count 161, Mean Platelet Volume 6.2L, Neutrophils (%) (Auto) 77.7H, Lymphocytes (%) (Auto) 11.4L, Monocytes (%) (Auto) 8.7, Eosinophils (%) (Auto) 0.8, Basophils (%) (Auto) 1.4, Sodium Level 139, Potassium Level 3.8, Chloride Level 105, Carbon Dioxide Level 24, Anion Gap 10, Blood Urea Nitrogen 11, Creatinine 0.7, Estimat Glomerular Filtration Rate , Glucose Level 98, Calcium Level 8.5 Height (Feet): 5 Height (Inches): 3.00 Weight (Pounds): 185 General Appearance: no apparent distress, alert EENT: normal ENT inspection Neck: normal alignment, supple Cardiovascular: normal rate, regular rhythm Respiratory/Chest: lungs clear, normal breath sounds Abdomen: non tender, soft Pelvis: normal rectal exam, speculum exam normal Edema: no edema noted Arm (L), no edema noted Arm (R), no edema noted Leg (L), no edema noted Leg (R), no edema noted Pedal (L), no edema noted Pedal (R), no edema noted Generalized Juan Vang MD Dec 26, 2018 07:52
--- NOTE | 2018-12-26 07:53 | Discharge Instructions ---
Discharge Instructions Discharge Instructions Services at Discharge: day care Diet: 2 GM sodium (low sodium), diabetic calorie control Follow Up Orders Continue home medications For Congestive Heart Failure Reminder Report to your physician any weight gain of 5 pounds or more in one week. Juan Vang MD Dec 26, 2018 07:53
[2018-12-26 08:00] VITALS: BP 142/79
[2018-12-26] MEDS: celeBREX 200mg Cap **SURGERY PATIENTS ONLY ORAL SCH (08:27)
[2018-12-26] MEDS: Enoxaparin 40mg Inj SUBQ SCH (08:28)
[2018-12-26] MEDS: Docusate 100mg cap ORAL SCH ×2 (08:29→13:00)
[2018-12-26] MEDS: Metamucil Pkt ORAL SCH ×2 (08:29→13:00)
--- NOTE | 2018-12-26 09:06 | NUR ---
DISCHARGE PLANNING [facility] WILL AUTHORIZE SNF PLACEMENT FOR THIS MEMBER THEY PROVIDED THEIR CONTRACTED FACILITIES [employer] [facility] FAXED TO [facility] WAITING FOR RESPONSE FROM ALL THREE FACILITIES
[2018-12-26] MEDS ORDERED: Tubing IV Secondary IV ONE (09:36)
[2018-12-26] MEDS ORDERED: NS 275ml ONE (09:36)
[2018-12-26] MEDS ORDERED: NS 500ML ONE (09:36)
--- NOTE | 2018-12-26 11:46 | NUR ---
*-* INSURANCE *-* UPDATED CLINICALS AND REVIEWS HAVE BEEN FAXED TO; [facility] I CALLED AND LM ON THE VMAIL FOR DELFINO DOMINGUEZ: DELFINO P- [phone] [phone]...........REVIEW /CLINICAL
[2018-12-26 12:00] VITALS: BP 158/77
--- NOTE | 2018-12-26 12:08 | NUR ---
DISCHARGE PLANNED PATIENT WILL DISCHARGE TO [facility] SKILLED T: [phone] FOR NURSE TO NURSE REPORT [facility] HAS BEEN ARRANGED FOR [address] SENIOR LICENSING MANAGER
[2018-12-26 12:38] VITALS: BP 158/77
[2018-12-26] MEDS: HydrALAZINE 25mg tab ORAL PRN (12:38)
[2018-12-26] MEDS ORDERED: ACETAMINOPHEN325 M1 ORAL (13:17)
[2018-12-26] MEDS ORDERED: BENADRYL25 MG ORAL (13:18)
[2018-12-26] MEDS ORDERED: CELEBREX200 MG ORAL (13:18)
[2018-12-26] MEDS ORDERED: COLACE100 MG ORAL (13:19)
[2018-12-26] MEDS ORDERED: PEPCID AC20 M2 PO (13:20)
[2018-12-26] MEDS ORDERED: LOVENOX10 M4 SUBQ (13:20)
[2018-12-26] MEDS ORDERED: HYDRALAZINE HCL25 M1 ORAL (13:21)
[2018-12-26] MEDS ORDERED: NORCO 10-325 T1 EACH ORAL (13:22)
[2018-12-26] MEDS ORDERED: PROTONIX40 MG ORAL (13:23)
[2018-12-26] MEDS ORDERED: TEMAZEPAM7.5 MG ORAL (13:24)
--- NOTE | 2018-12-26 14:04 | NUR ---
NURSE NOTES: Phone report was given to ELLY Quinonez at [facility].
--- NOTE | 2018-12-26 14:44 | NUR ---
NURSE NOTES: Removed IV line. Patient discharged with paramedics to [facility]. All belongings checked with pt and given to pt.
--- NOTE | 2018-12-28 21:24 | Discharge Summary ---
Discharge Summary Discharge Summary _ DATE OF ADMISSION: 12/22/2018 DATE OF DISCHARGE: 12/26/2018 DISCHARGED BY: Dr. Juan Vang CONSULTANTS: Dr. Bruce Copeland BRIEF HOSPITAL COURSE: Patient is a 78-year-old female, who presented to ED for evaluation and care of pain of her left leg. Patient was standing and seemingly twisted herself, heard a pop in the leg and fell. She instantly felt pain 10/10. She was given fentanyl by EMS. She denied numbness. Patient was diverted to our facility by [facility]. On evaluation at the ED, x-ray of the pelvis showed positive for femoral shaft fracture, no definite acute pelvic fracture. X-ray of the left femur showed fracture of the proximal femoral diaphysis, angulated, displaced by over one bone width. A traction splint was applied. A repeat x-ray of the left femur showed improved anatomic alignment. Neuro vascular exam was normal. Pain improved. Blood work did not show any leukocytosis. Hemoglobin 10, hematocrit 30. Potassium was 3.2. INR 1.0. Chest x-ray did not show any acute disease. She was then admitted for evaluation of left femur fracture. Orthopedic surgeon was consulted. She was given pain management. Blood glucose was monitored. She was given Lovenox for DVT prophylaxis. Orthopedic evaluation was done. Patient has left transverse midshaft femur fracture. On 12/23/2018, she underwent open reduction and internal fixation of the left midshaft femur fracture with intramedullary device. She tolerated procedure well. First day postop, vitals were stable. She underwent physical therapy. Case management was consulted for placement for rehab. She was eventually discharged to a SNF. FINAL DIAGNOSES: Left hip pain due to left transverse midshaft femur fracture status post ORIF Hypertension Diabetes mellitus DISPOSITION: Patient was discharged to a SNF. DISCHARGE MEDICATIONS: Refer to Discharge Medication List. I have been assigned to complete a discharge summary on this account, I was not involved with the patient's management.--ARABELLA Fragoso Jacqueline Robles NP Dec 28, 2018 21:24
== END 2018-12-26 14:44 | disposition home or self-care (01) | DRG 482 ==
LOC: EDBD 18:01 → EMR 18:25 → 3E 20:38 → EDBEDREQ 21:20
PROC: 0QS906Z Reposition Left Femoral Shaft with Intramedullary Internal Fixation Device, Open Approach (ICD-10-PCS; principal; 2018-12-23 20:00)
DX: M84.750A Atypical femoral fracture, unspecified, initial encounter for fracture (principal); S72.322A Displaced transverse fracture of shaft of left femur, initial encounter for closed fracture; T45.8X5A Adverse effect of other primarily systemic and hematological agents, initial encounter; Z79.83 Long term (current) use of bisphosphonates; I10 Essential (primary) hypertension; E11.9 Type 2 diabetes mellitus without complications; Z79.4 Long term (current) use of insulin; W19.XXXA Unspecified fall, initial encounter
CPT/HCPCS: 29505; 36415; 71045; 72170; 76000; 80048; 80053; 81001; 82962; 85025; 85610; 85730; 86850; 86900; 86901; 93005; 94003; 94150; 96361; 96374; 96375; 96376; 99285; J1815; J2405; J2710; J8499